=== PATIENT | male | born 1985 | race Caucasian/White ===

== ENCOUNTER 2017-08-21 10:15 | Emergency (ER) | payer OTHER, SELFPAY ==
[2017-08-21 10:24] VITALS: BMI 26.2
--- NOTE | 2017-08-21 10:25 | XR_ITS ---
XR shoulder LT min 2V HISTORY: Left shoulder pain ITS.REASON: PAIN FOR A WHILE ORDERING PHYSICIAN: Elmer Hubbard PATIENT AGE: 32 years COMPARISON: None FINDINGS: No fracture or dislocation. No lytic or blastic change. There is normal mineralization. The joint spaces are well-preserved. No significant degenerative/arthritic changes. No erosive changes evident. IMPRESSION: Negative, no acute finding
[2017-08-21 10:55] VITALS: BP 109/79; PULSE 81; RESP 20; TEMP 36.9; O2SAT 96; BMI 27.6
--- NOTE | 2017-08-21 11:00 | HMH.EDUTC ---
[facility]ression: Sprain of left shoulder Qualifiers: Encounter type: initial encounter Shoulder sprain type: unspecified sprain Qualified Code(s): S43.402A - Unspecified sprain of left shoulder joint, initial encounter Disposition: Home, Self-Care Condition on Discharge: Good Instructions: How To Perform RICE (Rest, Ice, Compress, Elevate), DI for Shoulder Sprain Additional Instructions: * use as tolerated but stop if pain. * Rest * continue moist heat and tiger balm * Elevate as discussed as much as possible to help reduce swelling and therefore, pain * Naproxen every 12 hours as needed with food. No additional anti-inflammatories like motrin, aleve, advil with the above amount of naproxen. You CAN still take Tylenol every 4 hours as needed if you need something more for pain. * Follow up with ortho Prescriptions: Naproxen 500 mg PO BID PRN #30 tab PRN Reason: Moderate To Severe Pain Referrals: Truman Sweeney MD [Staff Physician] - (Call their office and request appt. Be sure they know you were here and we already did shoulder xray.) Time of Disposition: 11:41 Medical Decision Making Vital Signs: 08/21/17 10:55 08/21/17 11:42 Temperature 98.5 F 98.5 F Temperature Source Temporal Artery Scan Pulse Rate 87 Pulse Rate [Right Radial] 81 Respiratory Rate 20 20 Blood Pressure 134/78 Blood Pressure [Right Arm] 109/79 Blood Pressure Mean [Right Arm] 89 02 Sat by Pulse Oximetry 96 Oxygen Delivery Method Room Air - Radiology Data #1 Image(s): Shoulder Image Reviewed: Yes I reviewed the patient's radiology image w/the ED provider Preliminary Findings: Normal/NAD Rvwd w/ MODE Peguero MD - [place] Inquiry Pt receiving controlled substance: No [facility] [place] - General Stated complaint: left shoulder brain Time Seen by Provider: 08/21/17 11:00 Mode of Arrival: Family Vehicle Source of Information: Patient Limitations: No Limitations Description of Symptoms (Recalled from Triage Doc. by RN): pt states he is having left shoulder pain. pt states it was injured playing football on . HEENT Symptoms (Recalled from RN notes): No Resp Symptoms (Recalled from RN notes): No Skin Symptoms (Recalled from RN notes): No MS Symptoms (Recalled from RN notes): Yes (left shoulder pain) Functional Status (Recalled from RN notes): na - History of Present Illness Provider Complaint: c/o left shoulder pain. Started while playing football on . Remembers reaching for the ball and feeling the pain. Did not have insurance at that time so never had treatment. Pain has just persisted intermittently since then. Worse with certain movements. Tried returning to lifting weights but pain with curls. Notices pain when trying to carry things. No joint swelling. No limited ROM. Occasional just a little numbness and tingling at times throughout arm. Tylenol and ibuprofen don't help. Advil has. Heating pad does. [place] balm helps the most. - Related Data Previous Rx's Medication Instructions Recorded Naproxen 500 mg PO BID PRN #30 tab 08/21/17 Allergies Allergy/AdvReac Type Severity Reaction Status Date / Time No Known Allergies Allergy Verified 08/21/17 10:24 - Worker's Comp Is this a Worker's Comp case?: No H History I have reviewed the patient's past medical history: Yes Medical History: Denies:: Cancer, Diabetes Mellitus Type 1, Diabetes Mellitus Type 2, Hypertension, MRSA Other Surgeries: Yes: Other (large intestine removed at 3 days old, multiple eye surgeries) Amputation: No Fractures: No - Social History Smoking Status: Current every day smoker Tobacco Type: cigarettes Alcohol Intake: current Alcohol Intake Frequency:: holidays/special occasions only - Psychiatric History Expresses thoughts of harming self/others: None Suicide Plan Description: No Plan ROS Obtained: Yes Systems reviewed as appropriate & no additional complaints - Constitutional Co
--- NOTE | 2017-08-21 11:09 | ED_ITS ---
[facility] [place]: Sprain of left shoulder Qualifiers: Encounter type: initial encounter Shoulder sprain type: unspecified sprain Qualified Code(s): S43.402A - Unspecified sprain of left shoulder joint, initial encounter Disposition: Home, Self-Care Condition on Discharge: Good Instructions: How To Perform RICE (Rest, Ice, Compress, Elevate), DI for Shoulder Sprain Additional Instructions: * use as tolerated but stop if pain. * Rest * continue moist heat and tiger balm * Elevate as discussed as much as possible to help reduce swelling and therefore , pain * Naproxen every 12 hours as needed with food. No additional anti- inflammatories like motrin, aleve, advil with the above amount of naproxen. You CAN still take Tylenol every 4 hours as needed if you need something more for pain. * Follow up with ortho Prescriptions: Naproxen 500 mg PO BID PRN #30 tab PRN Reason: Moderate To Severe Pain Referrals: Truman Sweeney MD [Staff Physician] - (Call their office and request appt. Be sure they know you were here and we already did shoulder xray.) Time of Disposition: 11:41 Medical Decision Making Vital Signs: 08/21/17 10:55 08/21/17 11:42 Temperature 98.5 F 98.5 F Temperature Source Temporal Artery Scan Pulse Rate 87 Pulse Rate [Right Radial] 81 Respiratory Rate 20 20 Blood Pressure 134/78 Blood Pressure [Right Arm] 109/79 Blood Pressure Mean [Right Arm] 89 02 Sat by Pulse Oximetry 96 Oxygen Delivery Method Room Air - Radiology Data #1 Image(s): Shoulder Image Reviewed: Yes I reviewed the patient's radiology image w/the ED provider Preliminary Findings: Normal/NAD Rvwd w/ MODE Peguero MD - [place] Inquiry Pt receiving controlled substance: No [facility] [place] - General Stated complaint: left shoulder brain Time Seen by Provider: 08/21/17 11:00 Mode of Arrival: Family Vehicle Source of Information: Patient Limitations: No Limitations Description of Symptoms (Recalled from Triage Doc. by RN): pt states he is having left shoulder pain. pt states it was injured playing football on . HEENT Symptoms (Recalled from RN notes): No Resp Symptoms (Recalled from RN notes): No Skin Symptoms (Recalled from RN notes): No MS Symptoms (Recalled from RN notes): Yes (left shoulder pain) Functional Status (Recalled from RN notes): na - History of Present Illness Provider Complaint: c/o left shoulder pain. Started while playing football on . Remembers reaching for the ball and feeling the pain. Did not have insurance at that time so never had treatment. Pain has just persisted intermittently since then. Worse with certain movements. Tried returning to lifting weights but pain with curls. Notices pain when trying to carry things. No joint swelling. No limited ROM. Occasional just a little numbness and tingling at times throughout arm. Tylenol and ibuprofen don't help. Advil has. Heating pad does. [place] balm helps the most. - Related Data Previous Rx's Medication Instructions Recorded Naproxen 500 mg PO BID PRN #30 tab 08/21/17 Allergies Allergy/AdvReac Type Severity Reaction Status Date / Time No Known Allergies Allergy Verified 08/21/17 10:24 - Worker's Comp Is this a Worker's Comp case?: No H History I have reviewed the patient's past medical history: Yes Medical History: Denies:: Debora
[2017-08-21 11:42] VITALS: BP 134/78; PULSE 87; RESP 20; TEMP 36.9; O2SAT 99
== END 2017-08-21 11:43 | disposition home or self-care (01) ==
PROVIDERS: Emergency Provider Nurse Practitioner Family
DX: S43.402A Unspecified sprain of left shoulder joint, initial encounter (principal); F17.210 Nicotine dependence, cigarettes, uncomplicated; X50.0XXA Overexertion from strenuous movement or load, initial encounter; Y93.61 Activity, american tackle football; Y92.89 Other specified places as the place of occurrence of the external cause
CPT/HCPCS: 73030; 99202

== ENCOUNTER → 2017-10-30 09:59 | Outpatient (CLI) | payer OTHER, SELFPAY ==
--- NOTE | 2017-10-30 10:02 | MR_ITS ---
MR shoulder LT wo con Ordering Physician: Truman Sweeney MD Patient Age: 32 years: Male HISTORY: ITS.REASON: Left shoulder sprain . Symptoms for 5 months heart of popliteus shoulder and pain with raising arm above head has had weakness in his left arm TECHNIQUE: Multiplanar multisequence imaging on 1.5 T MRI.q COMPARISON :August 21, 1999 8:15 plain film FINDINGS. Abnormal Supraspinatus tendon. Increased signal and thickening suggesting suggestive of a chronic tendinopathy. Suspect there is associated interstitial tear which extends slightly inferiorly as well as small area extending superiorly yielding a tiny full-thickness tear... Coronal image 4 suspect for a subtle oblique full-thickness tear continuing through the superior fibers of posterior supraspinatus tendon near its junction with the infraspinatus tendon.,, but with no tendon retraction evident.... There is increased fluid at the subdeltoid subacromial bursa most evident overlying this specific area. Supporting full-thickness tear. The sagittal views demonstrate the posterior downward sloping acromion with resulting narrowing of the subacromial space most pronounced at the region of posterior supraspinatus & its junction with infraspinatus.. The coronal images show slight downward sloping of the acromion this projection as well A focus of increased bone signal at the insertion of the subscapularis just posterior to the bicipital groove. Could be sequela of impingement versus posttraumatic change Infraspinatus Tendon:. Slight increased signal at the superior infraspinatus suggesting mild tendinopathy at its inferior aspect. There is a small likely infraspinatus insertional erosion at posterior aspect of humeral head. Accounting for a small high signal focus here. Subscapularis tendon. Intact with upper normal signal near its insertion. Reflect some minor tendinopathy. Axial image 14. The biceps tendon seems to be intact with upper normal signal Osseous glenoid intact. The anterior and posterior glenoid labrum seem to be intact with generous anterior labrum. Only question some mild fraying fibrillation at the anterior labrum The muscles of the rotator cuff are well-developed. IMPRESSION 1. Abnormal Supraspinatus tendon. Generous Tendinopathy with small full-thickness tear. No tendon retraction. 2. Minimal tendinopathy at superior margin of infraspinatus 3. The acromion has a downward sloping appearance on both the coronal and sagittal images. This somewhat narrows the subacromial space and likely yield impingement .
--- NOTE | 2017-10-30 10:16 | XR_ITS ---
XR orbit bilateral min 4V Ordering Physician: Truman Sweeney MD Patient Age: 32 years: Male HISTORY: ITS.REASON: RULE OUT METAL FOREIGN BODY FOR MRI TECHNIQUE: Zaman view orbits looking up and down. COMPARISON : No relevant previous studies FINDINGS The orbits appear size actually with no radiopaque foreign body evident. Patient is clear for MRI. The visualized frontal maxillary sinuses are clear. The mastoid air cells also appear to be well-developed and clear. Old rib intact. IMPRESSION: No evidence of radiopaque foreign body. Patient is cleared for MRI Visualized Paranasal sinuses are clear with no active disease of the study
== END ==
PROVIDERS: PCP Orthopaedic Surgery; Visit Provider Orthopaedic Surgery
DX: H05.53 Retained (old) foreign body following penetrating wound of bilateral orbits (principal); S43.402A Unspecified sprain of left shoulder joint, initial encounter
CPT/HCPCS: 70200; 73221

== ENCOUNTER → 2018-11-25 20:42 | Outpatient (CLI) | payer BC, SELFPAY ==
--- NOTE | 2018-11-25 21:25 | XR_ITS ---
XR shoulder LT min 2V HISTORY: 08/21/2017 ITS.REASON: grashy, axillary and supraspinatus views ORDERING PHYSICIAN: Ryan Louie MD PATIENT AGE: 33 years Comparison: None FINDINGS: No fracture or dislocation. No lytic or blastic change. There is normal mineralization. The joint spaces are well-preserved. No significant degenerative/arthritic changes. No erosive changes evident. IMPRESSION: Negative, no acute finding
== END ==
PROVIDERS: Visit Provider Orthopaedic Surgery
DX: M25.512 Pain in left shoulder (principal)
CPT/HCPCS: 73030

== ENCOUNTER 2018-11-27 15:16 | Outpatient (RCR) | payer BC, SELFPAY | END 2018-11-27 15:25 | disposition home or self-care (01) | LOC: OT 15:16 | PROVIDERS: Visit Provider Orthopaedic Surgery | DX: G56.02 Carpal tunnel syndrome, left upper limb (principal) | CPT/HCPCS: 97763 ==

== ENCOUNTER → 2018-12-10 07:51 | Outpatient (CLI) | payer BC, SELFPAY ==
--- NOTE | 2018-12-10 07:53 | MR_ITS ---
MR shoulder LT wo con HISTORY:Left shoulder pain, torn rotator cuff, limited range of motion with weakness ITS.REASON: evaluate for rotator cuff tear ORDERING PHYSICIAN: Ryan Louie MD PATIENT AGE: 33 years Comparison: 11/25/2018 , 10-30-17 TECHNIQUE: Standard multiplanar multiecho sequences are performed without contrast. FINDINGS: There is a low-lying acromion with subacromial stenosis with the subacromial space measuring approximately 6 mm. There is mild acromioclavicular arthropathy. There is thickening of the supraspinatus tendon with increased T2 signal consistent with tendinopathy/tendinosis. Along the posterior aspect of the supraspinatus tendon distally there remains an oblique area of increased T2 signal consistent with a small full-thickness tear best detected on coronal image #4. This did have a similar appearance on the previous exam. The infraspinatus, subscapularis and teres minor tendons have an unremarkable appearance. No labral tear evident. The bicipital tendon is in place. There is a small amount fluid in the subdeltoid area. There is a small amount fluid also around the bicipital tendon. There remains some bone marrow edema within the greater tuberosity adjacent to the area of suspected tear within the rotator cuff. IMPRESSION: 1. There is a small full-thickness tear suspected involving the posterior and distal aspect of the supraspinatus tendon similar to the previous study 2. Subacromial stenosis. 3. Persistent edema at the greater tuberosity at the insertion site of the supraspinatus tendon.
== END ==
PROVIDERS: PCP Family Medicine; Visit Provider Orthopaedic Surgery
DX: M25.512 Pain in left shoulder (principal); M75.102 Unspecified rotator cuff tear or rupture of left shoulder, not specified as traumatic; G89.29 Other chronic pain
CPT/HCPCS: 73221

== ENCOUNTER → 2018-12-19 11:08 | Outpatient (CLI) | payer BC, SELFPAY ==
--- NOTE | 2018-12-19 11:23 | XR_ITS ---
XR chest 2V HISTORY: ITS.REASON: SMOKER, PRE OP ORDERING PHYSICIAN: Ryan Louie MD PATIENT AGE: 33 years COMPARISON: None FINDINGS: The cardiomediastinal silhouette and pulmonary vascularity are within normal limits. The lungs are clear without infiltrates, suspicious nodules, or pleural effusions. No acute bony abnormalities. IMPRESSION: Negative chest, no acute finding
[2018-12-19 11:27] LABS: Basophils # 0.1 K/mm3 (0-0.2); Basophils % 1.1 % (0.1-2.0); Eosinophils # 0.2 K/mm3 (0.0-0.4); Eosinophils % 3.1 % (0.1-12.0); Hematocrit 54.5 % (42.0-52.0); Hemoglobin 17.8 g/dL (14.1-18.0); Lymphocytes # 2.1 K/mm3 (0.7-4.5); Lymphocytes % 33.7 % (10-50); Mean Corpuscular HGB Conc 32.6 g/dL (31.8-35.4); Mean Corpuscular Hemoglobin 29.8 pg (27.0-31.2); Mean Corpuscular Volume 91.6 fl (80-94); Mean Platelet Volume 7.2 fl (7.4-10.4); Monocytes # 0.5 K/mm3 (0.1-1.0); Monocytes % 7.6 % (1.7-9.3); Neutrophils # 3.5 K/mm3 (1.8-7.8); Neutrophils % 54.6 % (37.0-80.0); Platelet Count 229 K/mm3 (142-424); Red Blood Count 5.95 M/mm3 (4.60-6.20); White Blood Count 6.3 K/mm3 (4.8-10.8)
[2018-12-19 13:58] LABS: Anion Gap 13.3 mEq/L (5-15); Blood Urea Nitrogen 11 mg/dL (7-18); Carbon Dioxide 30 mmol/L (21.0-32.0); Chloride 106 mmol/L (98-107); Creatinine,Serum 1.22 mg/dL (0.70-1.30); Estimated Glomerular Filt Rate 69 ml/min (>60); GFR (African American) 83 ML/MIN (>60); Glucose 77 mg/dL (74-106); Potassium 4.3 mmoL/L (3.5-5.1); Sodium 145 mmol/L (136-145)
== END ==
PROVIDERS: Visit Provider Orthopaedic Surgery
DX: Z01.818 Encounter for other preprocedural examination (principal); M75.42 Impingement syndrome of left shoulder; M25.512 Pain in left shoulder; M67.912 Unspecified disorder of synovium and tendon, left shoulder; M75.122 Complete rotator cuff tear or rupture of left shoulder, not specified as traumatic; M75.22 Bicipital tendinitis, left shoulder; G56.02 Carpal tunnel syndrome, left upper limb
CPT/HCPCS: 36415; 71046; 80048; 85025

== ENCOUNTER → 2019-04-08 09:45 | Outpatient (CLI) | payer BC, SELFPAY ==
--- NOTE | 2019-04-08 09:48 | XR_ITS ---
PROCEDURE: XR SHOULDER LT MIN 2V CLINICAL INDICATION: sp LT shoulder surgery/ dos 12/29/18 COMPARISON: [id number] XR shoulder LT min 2V from 08/21/2017 Shoulder L from 11/25/2018 from 12/19/2018 FINDINGS: There are mild osteoarthritic changes at the glenohumeral joint. No fracture or dislocation. IMPRESSION: Mild osteoarthritic change otherwise negative with no significant change Dictated by: Ellis Ramos MD 04/08/2019 18:07 Electronically signed by Ellis Ramos MD in [place] 04/08/2019 18:07
== END ==
PROVIDERS: PCP Family Medicine; Visit Provider Orthopaedic Surgery
DX: Z48.89 Encounter for other specified surgical aftercare (principal); M25.512 Pain in left shoulder
CPT/HCPCS: 73030

== ENCOUNTER 2019-06-11 08:00 | Outpatient (RCR) | payer BC, SELFPAY ==
--- NOTE | 2019-02-11 15:00 | HMH.OTOPEV ---
OT Inpatient Evaluation Rehab OT Outpatient Eval Start: 02/11/19 14:10 Freq: Status: Active Protocol: Document 02/11/19 14:48 DALLIN (Rec: 02/11/19 15:00 RMJAMES [id number]) Electronically Signed By Wendy Geiger OT 02/11/19 14:48 Outpatient Therapy Subjective History Subjective History Pt is a 33 year old male who reports to therapy for initial evaluation to L shoulder. Pt had RTC repair, SAD, and arthroscopic bicep tenodesis on 12/29/18. Pt currently demonstrates with significant decreased AROM/PROM and strength at left shoulder. Recently, pt was released from sling and allowed to complete PROM, AAROM, and AROM exercises. Pt will continue to be seen twice a week in ordert to address all deficits . PROM L Shoulder STG Flex: 130 degrees Abd: 130 degrees ER: 65 degrees IR: 65 degrees L shoulder PROM LTG Flex: 160 degrees Abd: 160 degrees ER: 80 degrees IR: 80 degrees Chief Complaint Pain,Weakness Symptom Type Ache,Throb,Sharp,Dull,Shooting Symptoms Relieved By Rest/Positioning Symptoms Aggravated By Physical Activity,Twisting, Lifting Prior Functional Limitations None Current Functional Limitations Reaching,Lifting,Housework, Dressing,Desk Work/Reading, Sleeping,Recreation Activity Symptom Description Intermittent,Activity Dependent Level of pain today (0-10) 5 Pain scale - at its best (0-10) 0 Pain scale - at its worst (0-10) 10 Shoulder/Elbow Eval Shoulder Objective Measurements Shoulder ROM Left Shoulder Abduction Active Range of 65 degrees Motion (degrees) Shoulder Abduction Passive Range of 80 degrees Motion (degrees) Shoulder Flexion Active Range of Motion 72 degrees (degrees) Query Text: Shoulder Flexion Passive Range of Motion 90 degrees (degrees) Shoulder External Rotation Active Range 20 degrees of Motion (degrees)
--- NOTE | 2019-03-27 10:22 | HMH.RHREAS ---
Rehab Reassessment Rehab OP Re-assessment Start: 03/27/19 10:09 Freq: Status: Active Protocol: Document 03/27/19 10:09 DALLIN (Rec: 03/27/19 10:22 [id number] Electronically Signed By Wendy Geiger OT 03/27/19 10:09 Rehab Re-assessment Subjective Subjective I am stiff because I missed a week. Objective Objective Notes Pt continues to be seen twice a week in order to engage in AROM/AAROM exercises to left shoulder. Pt is also passively ranged at left shoulder in supine in all planes. Pt does receive e- stim and ice in order to reduce pain/inflammation at shoulder. Assessment Progress Assessment Progressing as Expected Assessment Notes Pt has demonstrated improvement in both AROM/PROM. Strength continues to remain limited. However, pt has not been released to begin strengthening exercises. Current AROM at L Shoulder Flex: 125 degrees Abd: 110 degrees ER: 60 degrees IR: 60 degrees Patient goals met n/a Goals Not Met STG and LTG Revised Goals Continue working towards all goals written on initial evaluation. Plan Plan Continue with OT plan of care at this time. Frequency of Therapy 2x's a week Duration of therapy 6 more weeks Time and Billing Re-Eval Time 15 Re-Eval Billing Units 1 PHYSICIAN CERTIFICATION: I certify the specified therapy services for Balaji Woodruff are required, authorized, and reviewed every 30 days.
--- NOTE | 2019-05-12 08:50 | HMH.RHREAS ---
Rehab Reassessment Rehab OP Re-assessment Start: 03/27/19 10:09 Freq: Status: Active Protocol: Document 05/12/19 08:11 DALLIN (Rec: 05/12/19 08:49 DALLIN [id number]) Electronically Signed By Wendy Geiger OT 05/12/19 08:11 Rehab Re-assessment Subjective Subjective I know it has been a while. Objective Objective Notes Pt returned to therapy today after not attending therapy for ~25 days. Pt recently started a new job requiring significant hours. Pt engaged in AROM/AAROM/Strengthening exercises. Pt was passively ranged and reassessment was completed. Assessment Progress Assessment Progressing as Expected Assessment Notes Pt demonstrates improvement in both strength and AROM since previous reassessment. Current AROM at L Shoulder Flex: 135 degrees Abd: 125 degrees ER: 80 degrees IR: 60 degrees Patient goals met Short term goals have been met Goals Not Met LTG Revised Goals Continue working towards all goals written on initial evaluation. Plan Plan Continue with OT plan of care at this time. Frequency of Therapy 2x's a week Duration of therapy 6 more weeks Time and Billing Re-Eval Time 15 Re-Eval Billing Units 1 PHYSICIAN CERTIFICATION: I certify the specified therapy services for Balaji Woodruff are required, authorized, and reviewed every 30 days.
== END 2019-06-11 08:05 | disposition home or self-care (01) ==
LOC: OT 08:00
PROVIDERS: PCP Family Medicine; Visit Provider Orthopaedic Surgery
DX: M25.512 Pain in left shoulder (principal); M75.42 Impingement syndrome of left shoulder; M67.912 Unspecified disorder of synovium and tendon, left shoulder; M75.122 Complete rotator cuff tear or rupture of left shoulder, not specified as traumatic; M75.22 Bicipital tendinitis, left shoulder; G56.02 Carpal tunnel syndrome, left upper limb
CPT/HCPCS: 97014; 97110; 97140; 97164; 97166; G0283

== ENCOUNTER → 2019-08-20 18:42 | Outpatient (CLI) | payer BC, SELFPAY ==
[2019-08-20 18:45] LABS: Adenovirus F 40/41, stool Not Detected (NotDetected); Astrovirus Not Detected (NotDetected); Campylobacter Not Detected (NotDetected); Clostridium Difficile A/B, PCR Not Detected (NotDetected); Cryptosporidium Not Detected (NotDetected); Cyclospora Cayetanesis Not Detected (NotDetected); Entamoeba histolytica Not Detected (NotDetected); Enteroaggregative E coli Not Detected (NotDetected); Enteropathogenic E coli Not Detected (NotDetected); Enterotoxigenic E coli Not Detected (NotDetected); Giardia lamblia Not Detected (NotDetected); Norovirus Not Detected (NotDetected); Plesimonas Shigalloides, PCR Not Detected (NotDetected); Rotavirus A Not Detected (NotDetected); Salmonella, PCR Not Detected (NotDetected); Sapovirus Not Detected (NotDetected); Shiga-like toxin E coli Not Detected (NotDetected); Shigella Enterovasive E coli Not Detected (NotDetected); Vibrio Cholerae Not Detected (NotDetected); Vibrio, PCR Not Detected (NotDetected); Yersinia Entercolitica, PCR Not Detected (NotDetected)
== END ==
PROVIDERS: Visit Provider Nurse Practitioner
DX: R19.7 Diarrhea, unspecified (principal)
CPT/HCPCS: 87507